=== PATIENT | male | born 1940 | race Hispanic/Latino ===

== ENCOUNTER → 2020-04-21 | Outpatient (CLI) | payer OTHER | END | disposition home or self-care (01) | LOC: RAH 09:28 | PROVIDERS: ATTEND Internal Medicine | DX: N28.1 Cyst of kidney, acquired (principal); R17 Unspecified jaundice | CPT/HCPCS: 76700 ==

== ENCOUNTER 2023-04-01 05:48 | Day surgery (SDC) | payer OTHER ==
[2023-03-30 08:51] LABS: BASOPHILS # (AUTO) 0.04 K/uL (0.00-0.20); BASOPHILS % (AUTO) 0.7 % (0.0-5.0); EOSINOPHILS # (AUTO) 0.17 K/uL (0.00-0.70); HEMATOCRIT 40.3 % (42-54); IMMATURE GRANULOCYTE ABSOLUTE 0.02 K/uL (0-1); LYMPHOCYTES # (AUTO) 1.4 K/uL (1.0-4.8); LYMPHOCYTES % (AUTO) 25.4 % (21.0-51.0); MEAN CORPUSCULAR HEMOGLOBIN 32.3 pg (27.0-33.0); MEAN CORPUSCULAR VOLUME 92.4 fL (79-99); MONOCYTES # (AUTO) 0.6 K/uL (0.1-1.0); MONOCYTES % (AUTO) 10.6 % (3.0-13.0); NEUTROPHILS # (AUTO) 3.4 K/uL (1.8-7.7); NEUTROPHILS % (AUTO) 59.9 % (40.0-77.0); PLATELET COUNT (AUTO) 144 K/uL (130-400); RED BLOOD CELL COUNT(AUTO) 4.36 MIL/uL (4.50-6.20); RED CELL DISTRIBUTION WIDTH 12.2 % (11.0-15.5); WHITE BLOOD COUNT (AUTO) 5.7 K/uL (4.8-10.8)
[2023-03-30 09:01] LABS: CREATININE 0.7 mg/dL (0.5-1.5); POTASSIUM 4.1 mmol/L (3.5-5.1)
[2023-03-30 09:06] LABS: INR < 0.93 (0.85-1.15); PROTHROMBIN TIME 10.8 SEC (9.6-11.6)
[2023-03-30 09:07] LABS: PARTIAL THROMBOPLASTIN TIME 28.5 SEC (26.3-35.5)
[2023-03-30 09:20] VITALS: BP 186/77; PULSE 50; RESP 18
[2023-03-30 09:23] LABS: B-TYPE NATRIURETIC PEPTIDE 43 pg/mL (0-100)
[~2023-04-01] VITALS: Ht 165.1 cm; Wt 71.5 kg
[2023-04-01] VITALS (9 sets, daily range): BP systolic 114–168; BP diastolic 56–77; PULSE 46–64; RESP 16–18
[~2023-04-01 05:48] MED LIST: AEC81 PO; METF-444 PO; ROSU5TAB12 PO
[2023-04-01] MEDS ORDERED: 0.9%NACL 1000ML 1,000 ML IV ONE (07:02)
[2023-04-01] MEDS ORDERED: NICARDIPINE 25MG INJ IV ONE (08:49)
[2023-04-01] MEDS ORDERED: IOHEXOL 350 MG/ML 100ML INFUS..BTL IV ONE (08:49)
[2023-04-01] MEDS ORDERED: HEPARIN 10,000 UNIT/10ML (1,000 UNIT/ML) VIAL ONE (08:49)
[2023-04-01] MEDS ORDERED: LIDOCAINE HCL 400MG/20ML VIAL ONE (08:49)
[2023-04-01] MEDS ORDERED: NITROGLYCERIN 50MG VIAL ONE (08:49)
[2023-04-01] MEDS ORDERED: IODIXANOL 320 MG/ML 100 ML VIAL ONE (08:56)
[2023-04-01] MEDS ORDERED: MIDAZOLAM HCL 1 MG/ML 2ML VIAL ONE (09:04)
[2023-04-01] MEDS ORDERED: FENTANYL CITRATE PF 50 MCG/1 ML 2ML VIAL ONE (09:04)
[2023-04-01] MEDS ORDERED: ATROPINE 1MG SYG IVP ONE (09:51)
[2023-04-01] MEDS ORDERED: CLOPIDOGREL 300MG TAB ONE (10:03)
[2023-04-01] MEDS ORDERED: GLUCAGON 1MG KIT 1 MG ML IM PRN (11:30)
[2023-04-01] MEDS ORDERED: 0.9%NACL 1000ML 1,000 ML IV SCH (11:30)
[2023-04-01] MEDS ORDERED: DEXTROSE 50%-WATER 50 ML DISP.SYRIN IV PRN (11:30)
[2023-04-01] MEDS ORDERED: ONDANSETRON 4MG INJ IVP ONE (16:00)
== END 2023-04-01 15:30 | disposition home or self-care (01) ==
LOC: DAH 05:48
PROVIDERS: ATTEND Internal Medicine Cardiovascular Disease
DX: I70.211 Atherosclerosis of native arteries of extremities with intermittent claudication, right leg (principal); I70.92 Chronic total occlusion of artery of the extremities; L60.0 Ingrowing nail; E11.51 Type 2 diabetes mellitus with diabetic peripheral angiopathy without gangrene; I45.10 Unspecified right bundle-branch block; E78.5 Hyperlipidemia, unspecified; Z79.01 Long term (current) use of anticoagulants; Z79.899 Other long term (current) drug therapy; Z90.49 Acquired absence of other specified parts of digestive tract; Z98.890 Other specified postprocedural states; Z79.82 Long term (current) use of aspirin; Z79.84 Long term (current) use of oral hypoglycemic drugs
CPT/HCPCS: 80048; 83880; 85025; 85610; 85730; 36415; 71045; 93005; 37229; 85347; 82948; 75716; C1894 ×2; C1769 ×3; C1760; C1893; C1887; C1724; C1725; J3010; J3490 ×3; J7030; J1644 ×3; J2250; Q9967; A4215; A4222; A4221; A4663; A4216; A4606; A4223 ×3; 76942; 96360; 96361; 99156; 99157; J0461

== ENCOUNTER 2023-04-27 05:38 | Day surgery (SDC) | payer OTHER ==
[2023-04-20 11:58] VITALS: BP 188/71; PULSE 54; RESP 19
[2023-04-20 12:03] LABS: BASOPHILS # (AUTO) 0.04 K/uL (0.00-0.20); BASOPHILS % (AUTO) 0.7 % (0.0-5.0); EOSINOPHILS # (AUTO) 0.21 K/uL (0.00-0.70); EOSINOPHILS % (AUTO) 3.7 % (0.0-8.0); HEMATOCRIT 37.7 % (42-54); IMMATURE GRANULOCYTE ABSOLUTE 0.02 K/uL (0-1); LYMPHOCYTES # (AUTO) 1.4 K/uL (1.0-4.8); LYMPHOCYTES % (AUTO) 24.7 % (21.0-51.0); MEAN CORPUSCULAR HEMOGLOBIN 32.6 pg (27.0-33.0); MEAN CORPUSCULAR HGB CONC 35.5 g/dL (32.0-36.0); MEAN CORPUSCULAR VOLUME 91.7 fL (79-99); MONOCYTES # (AUTO) 0.6 K/uL (0.1-1.0); NEUTROPHILS # (AUTO) 3.4 K/uL (1.8-7.7); NEUTROPHILS % (AUTO) 59.5 % (40.0-77.0); PLATELET COUNT (AUTO) 193 K/uL (130-400); RED BLOOD CELL COUNT(AUTO) 4.11 MIL/uL (4.50-6.20); RED CELL DISTRIBUTION WIDTH 12.2 % (11.0-15.5); WHITE BLOOD COUNT (AUTO) 5.7 K/uL (4.8-10.8)
[2023-04-20 12:19] LABS: INR 0.94 (0.85-1.15); PROTHROMBIN TIME 10.9 SEC (9.6-11.6)
[2023-04-20 12:20] LABS: PARTIAL THROMBOPLASTIN TIME 28.8 SEC (26.3-35.5)
[2023-04-20 13:07] LABS: B-TYPE NATRIURETIC PEPTIDE 49 pg/mL (0-100)
[2023-04-20 13:49] LABS: CREATININE 0.7 mg/dL (0.5-1.5); POTASSIUM 4.4 mmol/L (3.5-5.1)
[2023-04-27] VITALS (10 sets, daily range): BP systolic 94–178; BP diastolic 46–92; PULSE 46–76; RESP 14–16
[~2023-04-27] VITALS: Ht 162.6 cm; Wt 73.5 kg
[2023-04-27] MEDS ORDERED: 0.9%NACL 1000ML 1,000 ML IV ONE (06:45)
[2023-04-27] MEDS ORDERED: IODIXANOL 320 MG/ML 100 ML VIAL ONE (07:15)
[2023-04-27] MEDS ORDERED: HEPARIN 10,000 UNIT/10ML (1,000 UNIT/ML) VIAL ONE (07:15)
[2023-04-27] MEDS ORDERED: NITROGLYCERIN 50MG VIAL ONE (07:15)
[2023-04-27] MEDS ORDERED: LIDOCAINE HCL 400MG/20ML VIAL ONE (07:15)
[2023-04-27] MEDS ORDERED: ATROPINE 1MG SYG IVP ONE (07:40)
[2023-04-27] MEDS ORDERED: FENTANYL CITRATE PF 50 MCG/1 ML 2ML VIAL ONE (07:55)
[2023-04-27] MEDS ORDERED: MIDAZOLAM HCL 1 MG/ML 2ML VIAL ONE ×2 (07:56→09:10)
[2023-04-27] MEDS ORDERED: CLOPIDOGREL 300MG TAB ONE ×2 (08:26→09:28)
[2023-04-27] MEDS ORDERED: NICARDIPINE 25MG INJ IV ONE (08:31)
[2023-04-27] MEDS ORDERED: HYDRALAZINE 20MG/ML VIAL ONE (09:15)
[2023-04-27] MEDS ORDERED: DEXTROSE 50%-WATER 50 ML DISP.SYRIN IV PRN (09:30)
[2023-04-27] MEDS ORDERED: GLUCAGON 1MG KIT 1 MG ML IM PRN (09:30)
[2023-04-27] MEDS ORDERED: 0.9%NACL 1000ML 1,000 ML IV SCH (09:30)
[2023-04-27] MEDS ORDERED: CLOP-31 PO (10:39)
== END 2023-04-27 13:50 | disposition home or self-care (01) ==
LOC: DAH 05:38
PROVIDERS: ATTEND Internal Medicine Cardiovascular Disease
DX: I73.9 Peripheral vascular disease, unspecified (principal); E11.9 Type 2 diabetes mellitus without complications; Z79.84 Long term (current) use of oral hypoglycemic drugs; Z79.82 Long term (current) use of aspirin; Z90.49 Acquired absence of other specified parts of digestive tract; Z98.890 Other specified postprocedural states
CPT/HCPCS: 80048; 83880; 85025; 85610; 85730; 36415; 71045; 93005; 37229; 37225; 82948 ×2; C1894 ×2; C1769 ×3; C1760; C1893; C1887; C1724; C2623; C1725; J3010; J3490 ×3; J7030; J0360; J1644 ×3; J2250 ×2; Q9967; A4215; A4335; A4222; A4221; A4663; A4216; A4606; A4223 ×3; A4554; 96360; 96361; 99156; 99157; J0461

== ENCOUNTER → 2023-07-05 | Outpatient (CLI) | payer OTHER ==
[~2023-07-05] MED LIST changes: +CLOP-31 PO
== END | disposition home or self-care (01) ==
LOC: RAH 09:24
PROVIDERS: ATTEND Internal Medicine
DX: N28.1 Cyst of kidney, acquired (principal); K76.0 Fatty (change of) liver, not elsewhere classified; Z90.49 Acquired absence of other specified parts of digestive tract
CPT/HCPCS: 76700

== ENCOUNTER 2024-09-26 05:56 | Day surgery (SDC) | payer OTHER ==
--- NOTE | 2024-09-24 10:28 | EKG ---
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
[2024-09-24 10:33] VITALS: BP 156/67; PULSE 56; RESP 17; TEMP 97.7
[2024-09-24 10:33] LABS: IMMATURE GRANULOCYTE ABSOLUTE 0.02 K/uL (0-1); NUCLEATED RED BLOOD CELLS 0.0 % (0.0-0.19); PLATELET COUNT (AUTO) 216 K/uL (130-400); RED BLOOD CELL COUNT(AUTO) 4.13 MIL/uL (4.50-6.20); RED CELL DISTRIBUTION WIDTH 12.6 % (11.0-15.5); WHITE BLOOD COUNT (AUTO) 4.7 K/uL (4.8-10.8)
[2024-09-24 10:41] LABS: APPEARANCE,URINE CLEAR (CLEAR); GLUCOSE, URINE (UA) NEGATIVE (NEGATIVE); LEUKOCYTE ESTERASE ,URINE NEGATIVE Leu/uL (NEGATIVE); NITRATE,URINE NEGATIVE (NEGATIVE); OCCULT BLOOD,URINE NEGATIVE (NEGATIVE)
[2024-09-24 10:45] LABS: INR 1.02 (0.85-1.15)
[2024-09-24 10:46] LABS: ADD UA MICROSCOPIC NO
[2024-09-24 10:55] LABS: CREATININE 0.6 mg/dL (0.5-1.3); GLOMERULAR FILTR. RATE CALC 96.0 mL/min (>90); GLUCOSE,RANDOM 147.0 mg/dL (70-105); SODIUM SERUM 140.0 mmol/L (136-145); UREA NITROGEN, BLOOD 16.0 mg/dL (7-18)
--- NOTE | 2024-09-25 04:34 | HMCIMG ---
EXAM: CR Chest, 1 view CLINICAL HISTORY: Preoperative evaluation. COMPARISON: None provided. FINDINGS: Mild subsegmental atelectasis in the left lung base. No pleural effusion or pneumothorax. The cardiomediastinal silhouette is within normal limits. Mildly tortuous and atherosclerotic thoracic aorta. No acute osseous abnormality. Degenerative osseous changes. IMPRESSION: No acute cardiopulmonary process is evident. /[place]
[2024-09-26] VITALS (9 sets, daily range): BP systolic 110–162; BP diastolic 56–91; PULSE 53–67; RESP 16–18; TEMP 97.3–97.4
[~2024-09-26] VITALS: Ht 165.1 cm; Wt 72.4 kg
[~2024-09-26 05:56] MED LIST changes: +FAMO20TA8 PO; -ROSU5TAB12 PO; +SIMV-43 PO
[2024-09-26] MEDS: 0.9%NACL 1000ML 1,000 ML IV SCH (07:02)
[2024-09-26] MEDS ORDERED: SODIUM BICARB 50MEQ 50ML VIAL 0 ML ONE (07:12)
[2024-09-26] MEDS ORDERED: HEParin-NS 1,000 UNIT/500 ML 1,000 ML IV ONE (07:12)
[2024-09-26] MEDS ORDERED: IODIXANOL 320 MG/ML 100 ML VIAL ONE (07:12)
[2024-09-26] MEDS ORDERED: LIDOCAINE HCL 400MG/20ML VIAL ONE (07:12)
[2024-09-26] MEDS ORDERED: NITROGLYCERIN 50MG VIAL ONE (07:13)
[2024-09-26] MEDS ORDERED: MIDAZOLAM HCL 1 MG/ML 2ML VIAL ONE (07:22)
[2024-09-26] MEDS ORDERED: ATROPINE 1MG SYG IVP ONE (08:23)
[2024-09-26] MEDS ORDERED: HEParin-NS 1,000 UNIT/500 ML 500 ML IV ONE (08:52)
[2024-09-26] MEDS ORDERED: 0.9%NACL 1000ML 1,000 ML IV SCH (10:30)
[2024-09-26] MEDS ORDERED: GLUCAGON 1MG KIT 1 MG ML IM PRN (10:30)
[2024-09-26] MEDS ORDERED: DEXTROSE 50%-WATER 50 ML DISP.SYRIN IV PRN (10:30)
--- NOTE | 2024-09-26 10:32 | PRN ---
Procedure:Peripheral Angiogram Procedure Note Procedure Note: Peripheral Angiogram Date/Time of Service: 09/26/2024 Referring Physician: Dr. Dunne Procedures Performed: Lower abdominal aortogram, peripheral angiogram with lower extremity arterial runoff, femoral angiogram, balloon angioplasty, balloon lithotripsy, of the ostial, proximal, mid, and distal right anterior tibial artery, QUAN placement in the ostial and proximal right anterior tibial artery, balloon angioplasty of the proximal, mid, and distal right peroneal artery, and QUAN placement in the proximal right peroneal artery Indications for Procedure: PAD, Emerald category three symptoms (right lower extremity) PAD, 100% stenosis in the right anterior tibial artery status post successful treatment with balloon angioplasty done on 08/24/2024 PAD, status post successful treatment with balloon angioplasty, and balloon lithotripsy of the right peroneal artery, balloon angioplasty, balloon lithotripsy, and drug coated balloon angioplasty of the right tibioperoneal artery done on 07/11/2024 Description of Procedure: [After informed consent was obtained the patient was prepped and draped in the usual sterile fashion a 6 Barbadian arterial sheath with a hemostatic valve was inserted into the left common femoral artery using a modified Salinger technique on the first pass front wall puncture. A 5 Barbadian Omni Flush catheter was then advanced over a soft angled Glidewire into the abdominal aorta and a lower abdominal aortogram with runoff was obtained. The findings are listed below. The Omni flush catheter was then advanced to the right common femoral artery and a right lower extremity arteriogram was obtained. The findings are listed below.] Findings: Lower abdominal aorta: patent Right common iliac artery: patent Right external iliac artery: patent Right internal iliac artery: patent Right common femoral artery: patent Right profunda artery: patent Right superficial femoral artery: patent Right popliteal artery: patent Right anterior tibial artery: 90% stenosis in the ostial, proximal, mid, and distal segments of the artery Right tibioperoneal artery: patent Right peroneal artery: 100% stenosis (PATIENT FINANCIAL SERVICES SPECIALIST = 100mm) in the proximal segments of the artery. The artery reconstitutes distally via collateral blood flow Right posterior tibial artery: 100% stenosis (PATIENT FINANCIAL SERVICES SPECIALIST > 240mm) in the proximal segment of the artery. The artery does not reconstitute distally Right pedal arch: Incomplete, with slow single-vessel runoff supplying the anterior segment of the pedal arch. Left common iliac artery: patent Left external iliac artery: patent Left internal iliac artery: patent Left common femoral artery: patent Left profunda artery: patent Intervention: After reviewing the above-mentioned findings the decision was made to intervene on the right anterior tibial artery. The soft angled Glidewire was inserted into the Omni flush catheter and was advanced to the right popliteal artery. We then exchanged the short six Barbadian arterial sheath for a six Barbadian 65 cm destination arterial sheath, which was then placed in the mid right superficial femoral artery. We then administered heparin 75 units/kg IV x1 dose and clopidogrel 600 mg x 1 dose. We then advanced a 0.014 whisper guidewire and 0.014 quick cross catheter across the areas stenosis and into the proximal right dorsalis pedis artery. We then removed the quick cross catheter and performed balloon angioplasty (2.5 x 150 mm) and balloon lithotripsy (shockwave 3.0 x 80 mm) and balloon angioplasty (chocolate 3.0 x 120 mm) in the ostial, proximal, mid, and distal right anterior tibial artery. We then performed successful QUAN placement (Esprit 3.0 x 38mm) in the ostial and proximal right anterior tibial artery. The stent was post dilated using a 3.5 x 20 mm balloon achieving optimal results. We we then performed repeat angiography which revealed a widely patent right anterior tibial artery without dissection, or perforation, and brisk single-vessel runoff supplying the anterior segment of the pedal arch. The 0.014 whisper guidewire was then pulled back and advanced across the areas stenosis in the proximal and mid right peroneal artery and into the distal segment of the artery. We then performed balloon angioplasty (2.5 x 150 mm > 3.0 x 120 mm) in the proximal, mid, and distal right peroneal artery. We then performed successful QUAN placement (Esprit 3.5 x 38mm) in the proximal right peroneal artery. Repeat angiography then revealed a widely patent right anterior tibial artery, right tibioperoneal artery, and right peroneal artery, without dissection, or perforation, and brisk two-vessel runoff supplying the anterior and posterior segments of the right pedal arch. The 0.014 whisper guidewire and 65 cm six Barbadian destination arterial sheath were then removed and the arteriotomy site in the left common femoral artery was successfully closed using a six Barbadian Angio-Seal device. Estimated Blood Loss: [40]mL Complications: [ None] Conclusion: 1. PAD, [place] category three symptoms, 90% stenosis in the ostial, pr oximal, mid, and distal right anterior tibial artery status post successful treatment with balloon angioplasty, balloon lithotripsy, and QUAN placement (Esprit 3.0 x 38mm) in the ostial and proximal right anterior tibial artery, 100% stenosis in the proximal in mid right peroneal artery status post successful treatment with balloon angioplasty and QUAN placement (Esprit 3.5 x 38mm) in the proximal right peroneal artery 2. PAD, 100% stenosis in the right anterior tibial artery status post successful treatment with balloon angioplasty done on 08/24/2024 3. PAD, status post successful treatment with balloon angioplasty, and balloon lithotripsy of the right peroneal artery, balloon angioplasty, balloon lithotripsy, and drug coated balloon angioplasty of the right tibioperoneal artery done on 07/11/2024 Recommendations/Instructions: 1. Continue goal-directed medical therapy. 2. Continue Aspirin 81 mg daily and Plavix 75 mg daily for 1 year. 3. Groin precautions 4. 4 hours of bedrest 5. Start NS at 100ml/hr x 3hrs 6. Okay to DC once bedrest is complete in the left groin is soft, free of bruising, bleeding, and or hematoma formation. 7. No driving for the next 48 hours. 8. No heavy lifting or strenuous exercise for the next two weeks 9. Please have the patient follow up with Dr. Dunne in 1-2 weeks. HOLLY DUNNE MD Sep 26, 2024 10:32
== END 2024-09-26 14:21 | disposition home or self-care (01) ==
LOC: DAH 05:56
PROVIDERS: ATTEND Internal Medicine Cardiovascular Disease
DX: E11.51 Type 2 diabetes mellitus with diabetic peripheral angiopathy without gangrene (principal); I70.201 Unspecified atherosclerosis of native arteries of extremities, right leg; I70.92 Chronic total occlusion of artery of the extremities; E78.5 Hyperlipidemia, unspecified; I45.10 Unspecified right bundle-branch block; I49.1 Atrial premature depolarization; Z79.82 Long term (current) use of aspirin; Z90.49 Acquired absence of other specified parts of digestive tract; Z79.01 Long term (current) use of anticoagulants; Z79.899 Other long term (current) drug therapy
CPT/HCPCS: 80048; 83880; 85025; 85610; 85730; 81003; 36415 ×2; 71045; 93005; 99156; 99157 ×5; 75625; 37230; 85347; 82948 ×2; 75716; C9773; C1887; C1725 ×4; C1874 ×2; C1894 ×2; C1769 ×2; C1760; C1893; J3010; J3490 ×2; J1644 ×3; J2250; Q9967; A4215; A4222; A4221; A4663; A4216; A4606; A4223 ×3; 37234; 96360; 96361; J0461

== ENCOUNTER 2024-10-22 07:35 | Day surgery (SDC) | payer OTHER ==
[2024-10-18 10:23] LABS: IMMATURE GRANULOCYTE ABSOLUTE 0.01 K/uL (0-1); NUCLEATED RED BLOOD CELLS 0.0 % (0.0-0.19); PLATELET COUNT (AUTO) 153 K/uL (130-400); RED BLOOD CELL COUNT(AUTO) 4.09 MIL/uL (4.50-6.20); RED CELL DISTRIBUTION WIDTH 12.3 % (11.0-15.5); WHITE BLOOD COUNT (AUTO) 5.3 K/uL (4.8-10.8)
--- NOTE | 2024-10-18 10:23 | EKG ---
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
[2024-10-18 10:28] LABS: CREATININE 0.6 mg/dL (0.5-1.3); GLOMERULAR FILTR. RATE CALC 96.0 mL/min (>90); GLUCOSE,RANDOM 132.0 mg/dL (70-105); SODIUM SERUM 138.0 mmol/L (136-145); UREA NITROGEN, BLOOD 17.0 mg/dL (7-18)
[2024-10-18 10:35] LABS: APPEARANCE,URINE CLEAR (CLEAR); GLUCOSE, URINE (UA) NEGATIVE (NEGATIVE); LEUKOCYTE ESTERASE ,URINE NEGATIVE Leu/uL (NEGATIVE); NITRATE,URINE NEGATIVE (NEGATIVE); OCCULT BLOOD,URINE NEGATIVE (NEGATIVE)
[2024-10-18 10:37] LABS: INR 1.03 (0.85-1.15)
[2024-10-18 10:43] VITALS: BP 171/68; PULSE 54; RESP 18; TEMP 98.1
[2024-10-18 10:43] LABS: ADD UA MICROSCOPIC NO
--- NOTE | 2024-10-18 14:46 | HMCIMG ---
CHEST 1VW REASON: PRE OP COMPARISON: Prior study from 09/24/2024 is available. FINDINGS: Single view of the chest was obtained. Lungs are clear. Heart size is normal. There is no pulmonary vascular congestion. Mediastinum and bony thorax appear unremarkable. IMPRESSION: 1. Normal single view chest x-ray. Unchanged from prior study
[2024-10-22] VITALS (9 sets, daily range): BP systolic 117–150; BP diastolic 53–67; PULSE 45–61; RESP 16–18; TEMP 96.9–97.9
[~2024-10-22] VITALS: Ht 165.1 cm; Wt 71.7 kg
[2024-10-22] MEDS: 0.9%NACL 1000ML 1,000 ML IV ONE (08:11)
[2024-10-22] MEDS ORDERED: IODIXANOL 320 MG/ML 100 ML VIAL ONE (12:21)
[2024-10-22] MEDS ORDERED: LIDOCAINE HCL 400MG/20ML VIAL ONE (12:21)
[2024-10-22] MEDS ORDERED: HEParin-NS 1,000 UNIT/500 ML 1,000 ML IV ONE (12:21)
[2024-10-22] MEDS ORDERED: NITROGLYCERIN 50MG VIAL ONE (12:22)
[2024-10-22] MEDS ORDERED: MIDAZOLAM HCL 1 MG/ML 2ML VIAL ONE (12:40)
[2024-10-22] MEDS ORDERED: HEParin-NS 1,000 UNIT/500 ML 500 ML IV ONE (13:58)
[2024-10-22] MEDS ORDERED: ASPIRIN 325MG EC TAB PO ONE (14:38)
[2024-10-22] MEDS ORDERED: GLUCAGON 1MG KIT 1 MG ML IM PRN (15:00)
[2024-10-22] MEDS ORDERED: DEXTROSE 50%-WATER 50 ML DISP.SYRIN IV PRN (15:00)
[2024-10-22] MEDS ORDERED: 0.9%NACL 1000ML 1,000 ML IV SCH (15:00)
--- NOTE | 2024-10-22 15:09 | PRN ---
Procedure:Peripheral Angiogram Procedure Note Procedure Note: Peripheral Angiogram Date/Time of Service: 10/22/2024 Referring Physician: Dr. Dunne Procedures Performed: Lower abdominal aortogram, peripheral angiogram with lower extremity arterial runoff, balloon lithotripsy and drug coated balloon angioplasty in the distal left superficial femoral artery, balloon lithotripsy and QUAN placement in the left tibioperoneal artery and proximal left peroneal artery Indications for Procedure: PAD, Emerald category three symptoms (affecting the left lower extremity) PAD s/p peripheral intervention including orbital atherectomy and balloon lithotripsy of the left tibioperoneal artery and proximal left peroneal artery and drug coated balloon angioplasty of the left popliteal artery done in 2023 PAD status post multiple interventions in the right lower extremity, most recently QUAN placement in the proximal right anterior tibial artery and right peroneal artery on 09/26/2024 DM II Asymptomatic bradycardia Description of Procedure: [After informed consent was obtained the patient was prepped and draped in the usual sterile fashion a 6 Chinese arterial sheath with a hemostatic valve was inserted into the right common femoral artery using a modified Salinger technique on the first pass front wall puncture. A 5 Chinese Omni Flush catheter was then advanced over a soft angled Glidewire into the abdominal aorta and a lower abdominal aortogram with runoff was obtained. The findings are listed below. The Omni flush catheter was then advanced to the left external iliac artery in the left lower extremity arteriogram was obtained. The findings are listed below.] Findings: Lower abdominal aorta: patent Right common iliac artery: 30% stenosis in the proximal segment of the artery Right external iliac artery: patent Right internal iliac artery: patent Right common femoral artery: patent Right profunda artery: patent Left common iliac artery: patent Left external iliac artery: patent Left internal iliac artery: 99% stenosis in the mid segment of the artery Left common femoral artery: patent Left profunda artery: patent Left superficial femoral artery: Diffuse 70% stenosis in the distal segment of the artery Left popliteal artery: patent Left anterior tibial artery: 100% stenosis (STENCIL MACHINE OPERATOR > 260mm) in the proximal segment of the artery. The artery reconstitutes distally via collateral blood flow Left tibioperoneal artery: 90% stenosis Left peroneal artery: 95% stenosis in the proximal segment of the artery Left posterior tibial artery: 100% stenosis (STENCIL MACHINE OPERATOR = 300mm) in the proximal segment of the artery. The artery does not reconstitute distally Left pedal arch: Incomplete, with slow single-vessel runoff supplying the anterior and posterior segments of the left pedal arch. Intervention: After reviewing the above-mentioned findings the decision was made to intervene on the left superficial femoral artery, left tibioperoneal artery, and left peroneal artery. The soft angled Glidewire was inserted into the Omni flush catheter and was advanced to the left popliteal artery. The Omni flush catheter was then removed and the short six Chinese arterial sheath was exchanged for a 65 cm six Chinese destination arterial sheath, which was then placed in the mid left superficial femoral artery. We then administered heparin 75 units/kg x1 dose, clopidogrel 300 mg x 1 dose, and aspirin 325 mg x 1 dose. We then advanced a 0.014 whisper guidewire and 0.014 quick cross catheter across the areas stenosis and into the distal left peroneal artery. We then removed the quick cross catheter and performed balloon lithotripsy (shockwave 3.0 x 80mm) and QUAN placement (Esprit BTK 3.5 x 38mm and 3.0 x 38mm) in the left tibioperoneal artery and proximal left peroneal artery. The stents were post dilated using an NC 3.5 x 20mm balloon achieving optimal results. We then performed balloon lithotripsy (shockwave 6.0 x 60mm) and drug coated balloon angioplasty (Medtronic inpact 6.0 x 80mm) in the distal left superficial femoral artery. The balloons were then removed and repeat angiography was performed which revealed a widely patent left superficial femoral artery without dissection, or perforation, and widely patent stents in the left tibioperoneal artery and proximal left peroneal artery and brisk single-vessel runoff supplying the left foot/pedal arch. The 0.014 whisper guidewire and 65 cm six Chinese destination arterial sheath were then removed and the arteriotomy site in the right common femoral artery was successfully closed using a six Chinese Angio-Seal device. The patient tolerated the procedure well and without issue. Estimated Blood Loss: [40]mL Complications: [ None] Conclusion: 1. PAD, Emerald category 3 symptoms (left lower extremity), 70% stenosis in the distal left superficial femoral artery status post successful treatment with balloon lithotripsy and drug coated balloon angioplasty, 90% stenosis in the left tibioperoneal artery and 95% stenosis in the proximal left peroneal artery status post successful treatment with balloon lithotripsy and QUAN placement (Esprit BTK 3.5 x 38mm and 3.0 x 38mm). 2. PAD s/p multiple interventions in the right lower extremity, the most recent of which included QUAN placement in the right anterior tibial artery and right peroneal artery done on 09/26/2024 3. Asymptomatic bradycardia 4. DM II Recommendations/Instructions: 1. Continue goal-directed medical therapy. 2. Continue aspirin 81 mg daily and clopidogrel 75 mg daily 3. Groin precautions 4. 4 hours of bedrest 5. Start NS at 100 mL/hour x 3 hours. 6. Okay to DC once bed rest is complete and the right groin is soft, and free of bruising, bleeding, and or hematoma formation. 7. No driving for the next 48 hours. 8. No heavy lifting or strenuous exercise for the next two weeks. 9. Please have the patient follow up with Dr. Dunne in 1-2 weeks. HOLLY DUNNE MD Oct 22, 2024 15:09
== END 2024-10-22 18:28 | disposition home or self-care (01) ==
LOC: DAH 07:35
PROVIDERS: ATTEND Internal Medicine Cardiovascular Disease
DX: E11.51 Type 2 diabetes mellitus with diabetic peripheral angiopathy without gangrene (principal); I70.202 Unspecified atherosclerosis of native arteries of extremities, left leg; I70.92 Chronic total occlusion of artery of the extremities; R00.1 Bradycardia, unspecified; E78.5 Hyperlipidemia, unspecified; I45.10 Unspecified right bundle-branch block; E11.40 Type 2 diabetes mellitus with diabetic neuropathy, unspecified; Z90.49 Acquired absence of other specified parts of digestive tract; Z98.890 Other specified postprocedural states; Z79.01 Long term (current) use of anticoagulants; Z79.84 Long term (current) use of oral hypoglycemic drugs; Z79.899 Other long term (current) drug therapy
CPT/HCPCS: 80048; 83880; 85025; 85610; 85730; 81003; 36415; 71045; 93005; 75625; 75716; 99156; 99157 ×5; 85347; 82948 ×2; C9773; C1887; C1725 ×3; C1874 ×2; C1894 ×2; C1769 ×2; C1760; C2623; C1893; C9764; J3010; J3490 ×2; J7030; J1644 ×3; J2250; Q9967; A4215; A4222; A4221; A4663; A4216; A4606; A4223 ×3; 37230; 37234; 75710; C9772